=== PATIENT | female | born 1995 | race Two or more races ===

== ENCOUNTER 2024-09-11 13:52 | Outpatient (AMB) | payer MEDICAID, SELFPAY ==
[2024-09-11 14:11] VITALS: BP 121/76; PULSE 84; RESP 17; TEMP 36.5; O2SAT 98; BMI 36.5
--- NOTE | 2024-09-11 14:11 | AMB.OBINITIA ---
Vital Signs 09/11/24 14:11 Height 1.55 m Height Method Measured Weight 87.713 kg Weight Measurement Method Standing Scale BMI 36.5 BP 121/76 Blood Pressure Source Automatic Cuff Blood Pressure Location Right Upper Arm Position Sitting Respiration 17 Pulse 84 Pulse Source Monitor Temp 97.7 F Temp Source Temporal Artery Scan Pulse Oximetry (%) 98 Oxygen Delivery Method Room Air Allergies/Home Meds Allergies & Medications Allergies No Known Allergies Allergy (Verified 09/11/24 14:12) Medication Reconciliation mv-mn no.97-folic 180 mcg-dha 25 mg-herb no.293 25 mg chewable tablet (Alive Daily Support ) tab PO 09/11/24 [History Confirmed 09/11/24] Intake Visit Data Collection New Patient or Established: New Patient (never been to [facility] [place]) Reason for Visit:: OBI Seen by Clinical Staff ONLY (RN/MA): No Body Service Team Member Required: Yes Do You Feel Safe at Home: Yes Authorities Contacted: N/A PCP or OBGYN visit in last 3 months: No Hx Now: Yes Are you currently on any form of Control: No Pain Present Currently: No Pain Scale Used: Evans-Au/Numerical Pain scale:: 0 Smoking Status Smoking Status: Never smoker Questionnaires Covid-19 Vaccine Questionnaire Has patient been vacinated for Covid-19 Have you been vacinated for Covid-19: Yes PHQ-9 PHQ-2 Over the last 2 weeks, how often have you been bothered by any of the following problems? 1. Little interest or pleasure in doing things: not at all 2. Feeling down, depressed, or hopeless: not at all Total score: 0 PHQ-9 3. Trouble falling or staying asleep, or sleeping too much: Not at all 4. Feeling tired or having little energy: Not at all 5. Poor appetite or overeating: Not at all 6. Feeling bad about yourself - or that you are a failure or have let yourself or your family down: Not at all 7. Trouble concentrating on things, such as reading the newspaper or watching television: Not at all 8. Moving or speaking so slowly that other people could have noticed? - Or the opposite - being so fidgety or restless that you have been moving around a lot more than usual: not at all 9. Thoughts that you would be better off or of hurting yourself in some way: Not at all Total score: 0 If you checked off any problems, how difficult have these problems made it for you to do your work, take care of things at home, or get along with other people?: not difficult at all Source: Developed by Drs. Delmer Cameron, Jagruti Mock, Favian Oh and colleagues, with an educational abbi from [facility]. Depression screen completed yes Social History Living Situation History Marital Status: Lives With: Spouse Housing: House Tobacco History Smoking Status: Never smoker Alcohol History Alcohol Intake: Never Domestic Abuse History Do You Feel Safe at Home: Yes History of Present Illness HPI Narrative Lorna Coleman is a 28-year-old female presenting for transfer of care from [facility] at 36 weeks and 3 days gestation. She has a history of two previous C-sections and one spontaneous . The current is significant for maternal obesity and late entry to care. The patient's last menstrual period was on December 31, 2023, with an estimated due date of October 06, 2024. She has been scheduled for a on October 01, 2024, at 7:30 AM. The patient reports no contractions and confirms that the baby is moving. However, due to a vertical incision from previous C-sections, she has been referred for a special ultrasound in [place], as she is at higher risk for placenta problems. During the current visit, it was noted that the baby's heart rate is 190, prompting a decision to send the patient to the hospital for monitoring. No other specific complaints or symptoms were reported by the patient during this visit. Obstetric History - GTPAL: G4 T2 L2 - Current : - Gestational age: 36 weeks and 3 days - Estimated due date: October 06, 2024 - is significant for maternal obesity and late entry to care - history: - 2 previous C-sections - 1 spontaneous (S-AB) Medical History - Maternal obesity Surgical History - Two previous sections - Spontaneous (S-AB) Immunizations - Rubella: Patient is non-immune Review of Systems General: Negative for contractions. Neurological: Positive for movement. OB Initial Visit OB Flowsheet OB Flowsheet Initial Weight: Not Recorded Date <del>?</del> EGA Weight BP Alb Glu CTX Pres Fundal ht FHR Mov Dilation Station Effacement Hx Notes Visit Note 09/11/24 <del>?</del> 36w 3d 87.713 kg 121/76 occasional cephalic 37 190 active Transfer of care from [facility]. Hx 2 C/S with vertical incision, 1 SAB. Maternal obesity, late care. No CTX, good FM. FHR 190 (tachycardia). Labs: GTT 125, NIPT negative (male), rubella non-immune. C/S scheduled 10/01 at 7:30am, urgent [place] US for placenta eval (vertical incision), send to hospital now for monitoring, rubella vaccine. Menstrual History Menstrual reliability: definite Flow: normal Menstrual regularity: regular Monthly: Yes Age at menarche: 14 On control pills at conception: No Date of positive home test: 01/27/24 OB History : 4 Para: 2 Hx # Pregnancies: 0 Hx Total # of Abortions (Spontaneous & Elective): 1 # of Living Children: 2 Delivery History 1st : Child's name: SORAIDA DOMINGO date: 11/10/16 sex: male Gestational age at delivery (weeks): 40 Delivery type: weight (lbs): 2721.554 g History of depression before or after : No 2nd : Child's name: MILDRED DOMINGO date: 06/17/22 sex: male Gestational age at delivery (weeks): 39 Delivery type: weight (lbs): 2721.554 g History of depression before or after : No Infection History & Risk Evaluation History of STDs: none HIV risk evaluation: low risk Hepatitis B risk evaluation: low risk Patient or partner has history of Genital Herpes: No Genetic Screening & History Genetic Screening/Teratology Counseling - Includes patient, baby's father, or anyone in either family with: 1. Patient's age 35 years or older as of estimated date of delivery: No 2. Thalassemia (Vietnamese, French, Mediterranean, or Background); MCV less than 80: No 3. Neural Tube Defect (Meningomyelocele, Spina Bifida, or Anencephaly): No 4. Congenital Heart Defect: No 5. Down Syndrome: No 6. Kendall-Sachs (Ashkenazi Shinto, [facility], [employer] [place]): No 7. Francisco Javier Disease (Ashkenazi Shinto): No 8. Familial Dysautonomia (Ashkenazi Shinto): No 9. Sickle Cell Disease or Trait (): No 10. Hemophilia or other blood disorders: No 11. Muscular Dystrophy: No 12. Cystic Fibrosis: No 13. Ardara's Chorea: No 14. Mental Retardation/Autism: No 15. Other inherited genetic or chromosomal disorder: No 16. Maternal Metabolic Disorder (EG,TYPE 1 Diabetes, PKU): No 17. Patient or baby's father had a child with defects not listed above: No 19. Medications (including supplements, vitamins, herbs or otc drugs)/illicit/recreational drugs/alcohol since last menstrual period: No 20. Any other: No Infection History 1. Live with someone with TB or exposed to TB: No 2. Rash or viral illness since last menstrual period: No 3. Hepatitis B,C: No Other (see comments) Source: [employer] Exam General General Appearance: alert, in no apparent distress and healthy appearing Head Head exam: atraumatic Neck Neck exam: Present normal inspection and trachea midline Chest Chest inspection: Present normal inspection and symmetric chest wall rise External exam: Present normal external exam; Absent tenderness Neuro Neurological exam: Present oriented X3 Psych Psychiatric exam: Present normal affect and normal mood Office Procedures OB Clinic LOC & Office Proc's Nursing/Assessment Patient Status: Initial/New Patient OB Clinic Nursing Assessment: Medication Reconciliation, Update PMH in EMR and Vital Signs OB Clinic Coordination of Care: Complex Care and Chronic Disease 1-5, Education Complex Pt/Fam, Consent,records obtained, informed consent, Lab and Imaging orders and Staff clarify orders Special Needs: Heart tones New Patient Charge New Patient Point Assignment: [id number] New Patient Point Charge: PSYCHIATRIC LPN Level 4 ([id number]) Assessment & Plan Diagnosis / Problem List (1) Maternal care for low transverse scar from previous delivery: Status: Acute (2) Supervision of high risk , unspecified, third trimester: Status: Acute Plan Lorna Coleman, 28-year-old female, at 36 weeks 3 days gestation, presenting for transfer of care with history of 2 previous C-sections and one spontaneous . at 36 weeks 3 days gestation Assessment: Patient is a 28-year-old at 36 weeks 3 days gestation based on LMP of 12-31-2023 and EDC of 10-06-2024. is complicated by maternal obesity and late entry to care. Previous obstetric history significant for 2 C-sections and one spontaneous . One-hour glucose tolerance test result of 125 on 06-26-2024. NiPT test negative for trisomies, indicating male fetus. Ultrasound on 06-05-2024 showed average gestational age of 23 weeks 5 days with MOSES of 09-27-2024. Finalized due date is 10-06-2024. Patient has vertical incision from previous C-sections, increasing risk for placental problems. Plan: - scheduled for October 01, 2024, at 7:30 AM - Urgent referral for special ultrasound in [place] due to vertical incision - One-week follow-up appointment to be scheduled - Send patient to hospital for monitoring due to tachycardia (heart rate 190) tachycardia Assessment: heart rate noted to be 190, indicating tachycardia. This requires immediate evaluation and monitoring. Plan: - Send patient to hospital for immediate monitoring Rubella non-immunity Assessment: Patient's lab results indicate Rubella non-immunity, which may pose a risk for potential Rubella infection during . Plan: - Educate patient on importance of avoiding exposure to Rubella - Plan for post- Rubella vaccination
== END 2024-09-11 15:10 | disposition home or self-care (01) ==
LOC: HODSOBC 13:52
PROVIDERS: Supervising Provider Obstetrics & Gynecology; Visit Provider Obstetrics & Gynecology
DX: O09.33 Supervision of pregnancy with insufficient antenatal care, third trimester (principal); O09.293 Supervision of pregnancy with other poor reproductive or obstetric history, third trimester; O34.211 Maternal care for low transverse scar from previous cesarean delivery; O09.893 Supervision of other high risk pregnancies, third trimester; O99.213 Obesity complicating pregnancy, third trimester; O36.8330 Maternal care for abnormalities of the fetal heart rate or rhythm, third trimester, not applicable or unspecified; Z3A.36 36 weeks gestation of pregnancy
CPT/HCPCS: 99204; G0463

== ENCOUNTER 2024-09-11 15:17 | Outpatient (CLI) | payer MEDICAID, SELFPAY ==
[2024-09-11 15:23] VITALS: BP 110/57; PULSE 76; PULSE 81; O2SAT 99
[2024-09-11 15:28] VITALS: PULSE 98; O2SAT 98
--- NOTE | 2024-09-11 15:32 | XR_ITS ---
Examination: Biophysical profile, ultrasound Date and time of exam: September 11, 2024 at 1545 hours INDICATIONS: tachycardia Examination in the doctor's office today TECHNIQUE: Multiple transabdominal sonographic images of the pelvis abdomen obtained. Attention is directed to the breathing movement, gross body movement, amniotic fluid volume and tone. Findings: Amniotic fluid index 12.5 cm Cardiac motion 148 BPM Total biophysical profile is 8 of 8. breathing movement is 2. Gross body movement is 2. tone is 2. Qualitative amniotic fluid volume is 2 Impression: Biophysical profile is 8 of 8.
[2024-09-11 15:33] VITALS: PULSE 80; O2SAT 96
[2024-09-11 15:38] VITALS: PULSE 102; O2SAT 97
[2024-09-11 15:49] VITALS: BP 110/57; PULSE 81; RESP 18; RESP 99; TEMP 36.7; BMI 35.4
== END 2024-09-11 16:30 | disposition home or self-care (01) ==
LOC: S4S1 15:18 → S4SX 15:18
PROVIDERS: Referring Provider Obstetrics & Gynecology; Visit Provider Obstetrics & Gynecology
DX: Z34.83 Encounter for supervision of other normal pregnancy, third trimester (principal); Z36.9 Encounter for antenatal screening, unspecified; Z3A.36 36 weeks gestation of pregnancy
CPT/HCPCS: 59025; 76819

== ENCOUNTER 2024-09-18 14:26 | Outpatient (AMB) | payer MEDICAID, SELFPAY ==
[2024-09-18 14:36] VITALS: BP 122/76; PULSE 81; RESP 15; TEMP 36.5; O2SAT 98; BMI 36.5
--- NOTE | 2024-09-18 14:36 | OBCLNT_ITS ---
Vital Signs 09/18/24 14:36 Height 1.57 m Height Method Stated Weight 89.981 kg Weight Measurement Method Standing Scale BMI 36.5 BP 122/76 Blood Pressure Source Automatic Cuff Blood Pressure Location Left Upper Arm Position Sitting Respiration 15 Pulse 81 Pulse Source Monitor Temp 97.7 F Temp Source Oral Pulse Oximetry (%) 98 Oxygen Delivery Method Room Air Allergies/Home Meds Allergies & Medications Allergies No Known Allergies Allergy (Verified 09/11/24 14:12) Medication Reconciliation mv-mn no.97-folic 180 mcg-dha 25 mg-herb no.293 25 mg chewable tablet (Alive Daily Support ) tab PO 09/11/24 [History Confirmed 09/18/24] Intake Visit Data Collection New Patient or Established: Established Patient (seen at [facility] within 3 years) Reason for Visit:: CARE Seen by Clinical Staff ONLY (RN/MA): No Metal Roofing Mechanic Required: Yes Metal Roofing Mechanic's name/title: PAVEL MAYBERRY Do You Feel Safe at Home: Yes Authorities Contacted: N/A PCP or OBGYN visit in last 3 months: Yes Hx Now: Yes Are you currently on any form of Control: No Pain Present Currently: No Pain Scale Used: Evans-Au/Numerical Pain scale:: 0 Smoking Status Smoking Status: Never smoker Questionnaires Covid-19 Vaccine Questionnaire Has patient been vacinated for Covid-19 Have you been vacinated for Covid-19: Yes PHQ-9 PHQ-2 Over the last 2 weeks, how often have you been bothered by any of the following problems? 1. Little interest or pleasure in doing things: not at all 2. Feeling down, depressed, or hopeless: not at all Total score: 0 PHQ-9 3. Trouble falling or staying asleep, or sleeping too much: Not at all 4. Feeling tired or having little energy: Not at all 5. Poor appetite or overeating: Not at all 6. Feeling bad about yourself - or that you are a failure or have let yourself or your family down: Not at all 7. Trouble concentrating on things, such as reading the newspaper or watching television: Not at all 8. Moving or speaking so slowly that other people could have noticed? - Or the opposite - being so fidgety or restless that you have been moving around a lot more than usual: not at all 9. Thoughts that you would be better off or of hurting yourself in some way: Not at all Total score: 0 Source: Developed by Drs. Delmer Cameron, Jagruti Mock, Favian Oh and colleagues, with an educational abbi from [employer]. Depression screen completed yes Social History Living Situation History Lives With: Spouse Housing: House Tobacco History Smoking Status: Never smoker Alcohol History Alcohol Intake: Never Domestic Abuse History Do You Feel Safe at Home: Yes History of Present Illness HPI Narrative Lorna Early, , presents for routine visit at 37 weeks and 3 days gestation. Patient has a scheduled delivery (2 previous C-sections in [place]). No contractions, LOF, VB and reports good FM. Denies HERNÁNDEZ, VC, and epigastric pain. - Lorna Early is a 28-year-old 4 para 2 female at 37 weeks and 3 days gestation presenting for routine care. - Patient is scheduled for section on October 01, 2024 at 7:30. - Recent healthcare interaction: - Sent to labor and delivery due to tachycardia, which resolved during evaluation. - Current status: - Reports feeling fine - Notes baby is active - No current concerns reported Care OB Visit Log OB Flowsheet Initial Weight: Not Recorded Date -?-?-?-?-?-?-?-?-?-?-?-?- EGA Weight BP Alb Glu CTX Pres Fundal ht FHR Mov Dilation Station Effacement Hx Notes Visit Note 09/11/24 -?-?-?-?-?-?-?-?-?-?-?-?- 36w 3d 87.713 kg 121/76 occasional cephalic 37 190 active Transfer of care from [facility]. Hx 2 C/S with vertical incision, 1 SAB. Maternal obesity, late care. No CTX, good FM. FHR 190 (tachycardia). Labs: GTT 125, NIPT negative (male), rubella non-immune. C/S scheduled 10/01 at 7:30am, urgent [place] US for placenta eval (vertical incision), send to hospital now for monitoring, rubella vaccine. 09/18/24 -?-?-?-?-?-?-?-?-?-?-?-?- 37w 3d 89.981 kg 122/76 occasional cephalic 38 145 active Pt reports doing well, no CTX/LOF/VB, good FM. Hx of recent tachycardia resolved on eval. scheduled 10/01/24 at 7:30 AM. FHR reassuring. Weekly f/u, monitor FM, go to L&D if FM <3h and no response to juice. MOSES Calculator Estimated Delivery Date Method Current WG Current Estimate 10/06/24 LMP (Certain) 37w 3d Other Estimates 09/27/24 Ultrasound #1 38w 5d Specific Issue/Plans Vital Signs - Heart Rate: 190 bpm Laboratory, Imaging, and Diagnostic Test Results - Date: 06/26/2024 - One-hour glucose tolerance: 125 - NiPT: Negative for trisomies - ARTBiR: Non-reactive - HIV: Negative - Antibody screen: Negative - Hepatitis B: Negative - Urine culture: Negative - Blood group: A-positive - Rubella: Non-immune - Ultrasound (06/05/2024): - Average gestational age: 23 weeks and 5 days - Estimated due date: 09/27/2024 Exam General General Appearance: alert, in no apparent distress and healthy appearing Head Head exam: atraumatic Neck Neck exam: Present normal inspection and trachea midline Chest Chest inspection: Present normal inspection and symmetric chest wall rise External exam: Present normal external exam; Absent tenderness Neuro Neurological exam: Present oriented X3 Psych Psychiatric exam: Present normal affect and normal mood Office Procedures OB Clinic LOC & Office Proc's Nursing/Assessment Patient Status: Established Patient OB Clinic Nursing Assessment: Medication Reconciliation, Update PMH in EMR and Vital Signs OB Clinic Coordination of Care: Complex Care and Chronic Disease 1-5, Consent,records obtained, informed consent, Education Simp Pt/Fam, Lab and Imaging orders, Results/Orders obtained and Staff clarify orders Special Needs: Heart tones Established Patient Charge Established Patient Point Assignment: 135 Established Patient Point Charge: EP Level 4 (120-155) Assessment & Plan Diagnosis / Problem List (1) Supervision of high risk , unspecified, third trimester: Status: Acute (2) Maternal care for low transverse scar from previous delivery: Status: Acute Plan Problem List - , 37 weeks and 3 days gestation - History of tachycardia Assessment 37-week 3-day presenting for routine care. Patient is scheduled for section on October 01, 2024. History of recent tachycardia that resolved spontaneously during previous hospital evaluation. Currently, movement is reported as normal. Patient appears to be progressing normally in her with no acute concerns noted. Plan - scheduled for October 01, 2024 at 7:30 - Follow-up appointment in one week - If no movement for more than 3 hours, patient instructed to drink a glass of juice - If still no movement after juice, patient to go to the hospital 1. Progress Reviewed gestational age, growth, and heart rate. Planned frequent visits (every 2 weeks until 36 weeks, then weekly). 2. Instructed patient to monitor movements and report decreases immediately. Advised to drink a glass of juice if no movement felt for 3 hours, and to come to the hospital if that doesn't work. 3. Testing Counseled on routine third-trimester labs per guidelines. Discussed potential need for ultrasound or monitoring based on risk factors. 4. Preeclampsia Precaution Educated on preeclampsia signs: severe headache, vision changes, right upper quadrant pain, sudden swelling. Advised urgent reporting of symptoms and discussed blood pressure monitoring if high risk. 5. Labor Precautions Reviewed labor signs: regular contractions, pelvic pressure, back pain, bleeding, or fluid leakage. Instructed to seek immediate care for these symptoms. 6. Lifestyle and Delivery Preparation Reinforced vitamins, nutrition, and safe activity. Discussed plan, pain management, and . Advised on labor preparation (e.g., hospital bag) and expectations. 7. Psychosocial Support Assessed emotional well-being and offered resources for mental health or parent ing support.
== END 2024-09-18 14:48 | disposition home or self-care (01) ==
LOC: HODSOBC 14:26
PROVIDERS: PCP Obstetrics & Gynecology; Referring Provider Obstetrics & Gynecology; Supervising Provider Obstetrics & Gynecology; Visit Provider Obstetrics & Gynecology
DX: O09.293 Supervision of pregnancy with other poor reproductive or obstetric history, third trimester (principal); O34.211 Maternal care for low transverse scar from previous cesarean delivery; Z3A.37 37 weeks gestation of pregnancy
CPT/HCPCS: 99214; G0463

== ENCOUNTER 2024-09-25 11:02 | Outpatient (AMB) | payer MEDICAID, SELFPAY ==
[2024-09-25 11:09] VITALS: BP 118/80; PULSE 88; RESP 16; TEMP 36.4; O2SAT 98; BMI 36.7
--- NOTE | 2024-09-25 11:09 | AMB.OBVISIT ---
Vital Signs 09/25/24 11:09 Height 1.57 m Height Method Stated Weight 90.492 kg Weight Measurement Method Standing Scale BMI 36.7 BP 118/80 Blood Pressure Source Automatic Cuff Blood Pressure Location Left Upper Arm Position Sitting Respiration 16 Pulse 88 Pulse Source Monitor Temp 97.6 F Temp Source Oral Pulse Oximetry (%) 98 Oxygen Delivery Method Room Air Allergies/Home Meds Allergies & Medications Allergies No Known Allergies Allergy (Verified 09/25/24 11:10) Medication Reconciliation mv-mn no.97-folic 180 mcg-dha 25 mg-herb no.293 25 mg chewable tablet (Alive Daily Support ) tab PO 09/11/24 [History Confirmed 09/25/24] Intake Visit Data Collection New Patient or Established: Established Patient (seen at [facility] within 3 years) Reason for Visit:: CARE Seen by Clinical Staff ONLY (RN/MA): No [place] Management Specialist Required: No Do You Feel Safe at Home: Yes Authorities Contacted: N/A PCP or OBGYN visit in last 3 months: Yes Hx Now: Yes Are you currently on any form of Control: No Pain Present Currently: No Pain Scale Used: Evans-Au/Numerical Pain scale:: 0 Smoking Status Smoking Status: Never smoker Questionnaires Covid-19 Vaccine Questionnaire Has patient been vacinated for Covid-19 Have you been vacinated for Covid-19: Yes PHQ-9 PHQ-2 Over the last 2 weeks, how often have you been bothered by any of the following problems? 1. Little interest or pleasure in doing things: not at all 2. Feeling down, depressed, or hopeless: not at all Total score: 0 PHQ-9 3. Trouble falling or staying asleep, or sleeping too much: Not at all 4. Feeling tired or having little energy: Not at all 5. Poor appetite or overeating: Not at all 6. Feeling bad about yourself - or that you are a failure or have let yourself or your family down: Not at all 7. Trouble concentrating on things, such as reading the newspaper or watching television: Not at all 8. Moving or speaking so slowly that other people could have noticed? - Or the opposite - being so fidgety or restless that you have been moving around a lot more than usual: not at all 9. Thoughts that you would be better off or of hurting yourself in some way: Not at all Total score: 0 Source: Developed by Drs. Delmer Cameron, Jagruti Mock, Favian Oh and colleagues, with an educational abbi from [employer]. Depression screen completed yes Social History Living Situation History Lives With: Spouse Housing: House Tobacco History Smoking Status: Never smoker Alcohol History Alcohol Intake: Never Domestic Abuse History Do You Feel Safe at Home: Yes History of Present Illness HPI Narrative Yasmine Graham[P], presents for routine visit at 38 weeks and 3 days gestation. No contractions, LOF, VB and reports good FM. Denies HERNÁNDEZ, VC, and epigastric pain. - Lorna Early is a female patient presenting for routine care at 38 weeks and 3 days gestation. - She is scheduled for a on 10/01/2024 at 7:30 AM. - Patient instructed to register at 5:30 AM. - No food or water from 10 PM the night before. - heart rate noted to be 139 beats per minute. - Patient denies any contractions or other problems. Care OB Visit Log OB Flowsheet Initial Weight: Not Recorded Date <del>?</del> EGA Weight BP Alb Glu CTX Pres Fundal ht FHR Mov Dilation Station Effacement Hx Notes Visit Note 09/11/24 <del>?</del> 36w 3d 87.713 kg 121/76 occasional cephalic 37 190 active Transfer of care from [facility]. Hx 2 C/S with vertical incision, 1 SAB. Maternal obesity, late care. No CTX, good FM. FHR 190 (tachycardia). Labs: GTT 125, NIPT negative (male), rubella non-immune. C/S scheduled 10/01 at 7:30am, urgent Bell US for placenta eval (vertical incision), send to hospital now for monitoring, rubella vaccine. 09/18/24 <del>?</del> 37w 3d 89.981 kg 122/76 occasional cephalic 38 145 active Pt reports doing well, no CTX/LOF/VB, good FM. Hx of recent tachycardia resolved on eval. scheduled 10/01/24 at 7:30 AM. FHR reassuring. Weekly f/u, monitor FM, go to L&D if FM <3h and no response to juice. 09/25/24 <del>?</del> 38w 3d 90.492 kg 118/80 occasional cephalic 39 139 active 38w3d G[P], no CTX/LOF/VB, FM good. scheduled 10/01/24 at 7:30 AM, register at 5:30 AM, NPO after 10 PM prior. FHR 139. Plan: routine precautions reviewed, no further appointments, next encounter will be at hospital for delivery. MOSES Calculator Estimated Delivery Date Method Current WG Current Estimate 10/06/24 LMP (Certain) 38w 3d Other Estimates 09/27/24 Ultrasound #1 39w 5d Specific Issue/Plans Vital Signs - Heart Rate: 190 bpm Laboratory, Imaging, and Diagnostic Test Results - Date: 06/26/2024 - One-hour glucose tolerance: 125 - NiPT: Negative for trisomies - ARTBiR: Non-reactive - HIV: Negative - Antibody screen: Negative - Hepatitis B: Negative - Urine culture: Negative - Blood group: A-positive - Rubella: Non-immune - Ultrasound (06/05/2024): - Average gestational age: 23 weeks and 5 days - Estimated due date: 09/27/2024 Exam General General Appearance: alert, in no apparent distress and healthy appearing Head Head exam: atraumatic Neck Neck exam: Present normal inspection and trachea midline Chest Chest inspection: Present normal inspection and symmetric chest wall rise External exam: Present normal external exam; Absent tenderness Neuro Neurological exam: Present oriented X3 Psych Psychiatric exam: Present normal affect and normal mood Office Procedures OB Clinic LOC & Office Proc's Nursing/Assessment Patient Status: Established Patient OB Clinic Nursing Assessment: Medication Reconciliation, Update PMH in EMR and Vital Signs OB Clinic Coordination of Care: Complex Care and Chronic Disease 1-5, Consent,records obtained, informed consent, Education Simp Pt/Fam, Lab and Imaging orders, Results/Orders obtained and Staff clarify orders Special Needs: Heart tones Established Patient Charge Established Patient Point Assignment: 135 Established Patient Point Charge: EP Level 4 (120-155) Assessment & Plan Diagnosis / Problem List (1) Supervision of high risk , unspecified, third trimester: Status: Acute (2) Maternal care for low transverse scar from previous delivery: Status: Acute Plan Problem List - , 38 weeks and 3 days gestation Assessment Patient is at 38 weeks and 3 days gestation, presenting for routine care. heart rate is 139 bpm, which is noted as normal. Patient denies any contractions or other problems. A section is scheduled for 10/01/2024 at 7:30 AM. Plan - scheduled for 10/01/2024 at 7:30 AM - Patient to register at 5:30 AM on the day of surgery - NPO (nothing by mouth) from 10 PM the night before surgery - Next encounter will be at the hospital for the scheduled 1. Progress Reviewed gestational age, growth, and heart rate. Planned frequent visits (every 2 weeks until 36 weeks, then weekly). 2. Instructed patient to monitor movements and report decreases immediately. 3. Testing Counseled on routine third-trimester labs per guidelines. Discussed potential need for ultrasound or monitoring based on risk factors. 4. Preeclampsia Precaution Educated on preeclampsia signs: severe headache, vision changes, right upper quadrant pain, sudden swelling. Advised urgent reporting of symptoms and discussed blood pressure monitoring if high risk. 5. Labor Precautions Reviewed labor signs: regular contractions, pelvic pressure, back pain, bleeding, or fluid leakage. Instructed to seek immediate care for these symptoms. 6. Lifestyle and Delivery Preparation Reinforced vitamins, nutrition, and safe activity. Discussed plan, pain management, and . Advised on labor preparation (e.g., hospital bag) and expectations. 7. Psychosocial Support Assessed emotional well-being and offered resources for mental health or parenting support.
== END 2024-09-25 11:20 | disposition home or self-care (01) ==
LOC: HODSOBC 11:02
PROVIDERS: PCP Obstetrics & Gynecology; Referring Provider Obstetrics & Gynecology; Supervising Provider Obstetrics & Gynecology; Visit Provider Obstetrics & Gynecology
DX: O09.293 Supervision of pregnancy with other poor reproductive or obstetric history, third trimester (principal); O34.211 Maternal care for low transverse scar from previous cesarean delivery; Z3A.38 38 weeks gestation of pregnancy
CPT/HCPCS: 99214; G0463

== ENCOUNTER 2024-10-01 05:39 | Inpatient (IN) | payer MEDICAID, SELFPAY ==
[2024-10-01] VITALS (19 sets, daily range): BP systolic 84–144; BP diastolic 1–83; PULSE 48–78; RESP 12–21; TEMP 36.5–37; O2SAT 97–100; BMI 35.4
--- NOTE | 2024-10-01 06:24 | ESHP_ITS ---
Documentation for date of: 10/01/24 OB Labor/Induct. HPI History of Present Illness Chief complaint: Repeat : 4 Term pregnancies: 2 pregnancies: 0 Living children: 2 History of Abortions: Spontaneous and Elective: 0 History of sections: Yes (X2) History of : No Date of last menstrual period: 12/31/23 MOSES: 10/06/24 Gestational age based on last menstrual period: 39 History of present illness: Patient is a 28-year-old at 39 weeks and 2 days gestation presenting for a scheduled repeat low transverse caesarean section. Her estimated due date is October 06, 2024. She initially started her care at [facility] and transferred to the current practice in the third trimester. Her has been uncomplicated since the transfer. She has a history of two previous caesarean sections and one spontaneous . Patient's course has been largely unremarkable. Her one-hour glucose tolerance test result was 125. The remaining labs, which were reviewed from her primary bottle packing machine cleaner's office, were reportedly within normal limits. She is af G4 T2 L2. Her current is at 39 weeks and 2 days gestation, with an estimated due date of October 06, 2024. She is presenting for a Scheduled Repeat Low Transverse Caesarean Section. Patient's history includes 2 previous C-sections and one spontaneous (SAB). Her surgical history consists of two previous Caesarean sections and one spontaneous (SAB). Labs Labs: Negative: RPR, Hepatitis B, Rubella Titre and HIV and Unknown: Chlamydia, Gonorrhea, Herpes Type 1, Herpes Type 2, Group Beta Strep and Covid- 19 Review of Systems Review of Systems Systems Reviewed: All systems reviewed, normal except as documented Past Medical History Surgical History SURGICAL: Positive Section (X2) Meds Home Medications and Allergies Home Medications ?Medication ?Instructions ?Recorded ?Confirmed ?Type mv-mn no.97-folic 180 mcg-dha 25 tab PO 09/11/2409/25 History mg-herb no.293 25 mg chewable tablet (Alive Daily Support ) Allergies Allergy/AdvReac Type Severity Reaction Status Date / Time No Known Allergies Allergy Verified 10/01/24 06:10 OB Exam Physical Exam Vital signs: Temp Pulse Resp BP Pulse Ox O2 Del Method 98.0 F 74 16 122/83 98 Room Air 10/01/24 06:03 10/01/24 06:03 10/01/24 06:03 10/01/24 06:03 10/01/24 06:03 10/01/24 06:03 Constitutional Constitutional: no acute distress Routine HEENT Exam Head: Present normocephalic and atraumatic Eye: Present EOMI and PERRL ENT: Present mucous membranes moist Routine Neck Exam Neck: Present supple and trachea midline Routine Cardiovascular Exam Cardiovascular: Present RRR Routine Abdominal Exam Abdominal: Present soft and normoactive bowel sounds Detailed Labor and Delivery Exam Dilation (cm): 0 Effacement (%): 50 Cervix position: mid Baseline heart rate: 145 monitor accelerations: 15x15 monitor decelerations: None retirement variability: Average (6-10) Routine Extremities Exam Extremities: Present full ROM Routine Skin Exam Skin: Present intact, dry and warm Routine Neurological Exam Neurological: Present alert, oriented X3 and CN II-XII intact Routine Psychiatric Exam Psychiatric: Present normal affect and normal thought process OB Results Labs 10/01/24 06:00 OB Assessment & Plan Assessment and Plan (1) Supervision of high risk , unspecified, third trimester: Status: Acute Assessment and plan: Scheduled Repeat Low Transverse Section Plan: - Admit to inpatient status for repeat low transverse . - Establish IV access with Lactated Ringer's at 125 cc/hour. - Order preoperative labs: CBC, type and screen, RPR. - Administer cefazolin 2 grams IV within one hour of surgery start. - Apply sequential compression devices (SCDs) for DVT prophylaxis. - Obtain informed consent for repeat low transverse . - Scheduled for surgery for 7:30 AM. Patient Information: - 28-year-old at 39 weeks and 2 days gestation. - History of 2 previous C-sections and one spontaneous . - Estimated due date: October 06, 2024. - Uncomplicated . - One-hour glucose tolerance test result: 125. - labs from primary bottle packing machine cleaner's office reviewed. (2) Maternal care for low transverse scar from previous delivery: Status: Acute
[2024-10-01 06:39] LABS: Basophils # (Auto) 0.0 Thou/mm3 (0.0-0.2); Basophils % (Auto) 1 % (0-2.5); Eosinophils # (Auto) 0.1 Thou/mm3 (0.0-0.5); Eosinophils % (Auto) 1 % (0-10); Hematocrit 37.2 % (36.0-46.0); Hemoglobin 12.9 g/dL (12.0-16.0); Immature Granulocytes Auto 0.11 Thou/mm3 (0.00-0.00); Lymphocytes # (Auto) 2.3 Thou/mm3 (1.0-4.8); Lymphocytes % (Auto) 30 % (10-50); Mean Corpuscular HGB Conc 34.7 g/dl (31.0-37.0); Mean Corpuscular Hemoglobin 28.8 pg (25.0-35.0); Mean Corpuscular Volume 83 fL (80-100); Monocytes # (Auto) 0.5 Thou/mm3 (0.0-0.8); Monocytes % (Auto) 7 % (0-12); Neutrophils # (Auto) 4.6 Thou/mm3 (1.8-7.7); Neutrophils % (Auto) 60 % (37-80); Nucleated Red Blood Cell # 0.00 Thou/mm3 (0.00-0.00); Nucleated Red Blood Cell % 0 /100 WBC (0); Platelet Count 163 Thou/mm3 (140-440); RDW Standard Deviation 39.2 fL (36.4-46.3); Red Blood Count 4.48 Miln/mm3 (4.00-5.20); White Blood Count 7.7 Thou/mm3 (3.6-11.0)
[2024-10-01] MEDS: RINGERS LACTATED 1000 ML 1,000 ML 999 ML IV (06:59)
[2024-10-01 07:04] LABS: Syphilis Nonreactive (Nonreactive)
[2024-10-01] MEDS: CITRIC ACID/SODIUM CITR 15 ML UDC (BICITRA) 30 ML PO (08:04)
[2024-10-01] MEDS: ceFAZolin/D5W 2 GM IV 2 GM/100 ML BAG IV (08:05)
[2024-10-01] MEDS: FAMOTIDINE INJ 10 MG/ML VIAL 2 ML 20 MG IV (08:05)
--- NOTE | 2024-10-01 08:48 | PD.GYNPROC ---
Operative Note - GEOPHYSICAL PROSPECTING PERMIT AGENT Procedure Date of procedure: 10/01/24 Procedure Performed: Repeat low-transverse section Indication: 28-year-old 4 para 2 at 39 weeks and 2 days with previous Anesthesia type: Spinal Procedure description: Informed consent was obtained. The patient was brought to the operating room and identified with two patient identifiers. She was placed in the supine position, and spinal anesthesia was administered. After confirming adequate anesthesia, the abdomen and perineum were prepped and draped in the usual sterile fashion. A Rivera catheter was inserted for continuous bladder drainage. A vertical midline skin incision was made using a scalpel and carried through subcutaneous tissue to the rectus fascia. The previous skin scar was identified and excised in its entirety. The fascia was incised vertically and dissected off the rectus muscles both superiorly and inferiorly. The rectus bellies were in the midline, and the peritoneum was entered bluntly with the surgeon?s finger. The peritoneal opening was extended to allow adequate exposure. An Bijan O-ring retractor was placed for optimal visualization. The lower uterine segment was palpated, and the bladder flap was reflected inferiorly. A low transverse uterine incision (Sean Ferreira) was made with a scalpel and extended bluntly. The amniotic membranes were ruptured, and clear fluid was released. The fetus was in vertex presentation. A Mityvac vacuum device was applied to the head. Vacuum-assisted delivery was accomplished without any pop-offs. A single loop of nuchal cord was noted and reduced. The shoulders and body were delivered smoothly with gentle fundal pressure. The umbilical cord was doubly clamped and cut, and the infant was handed to the awaiting team. Cord gases were obtained. The placenta was delivered with gentle traction on the cord. The uterine cavity was cleared of membranes and clots. The hysterotomy angles were secured with Allis clamps. The uterine incision was closed in two layers using #1 Monocryl: the first layer was a running locked suture to approximate the myometrium, and the second layer imbricated the serosa and myometrium. Hemostasis was confirmed. The Bijan retractor was removed. Peritoneal edges and rectus muscles were reapproximated. Rectus fascia was closed with running 0 Vicryl. The subcutaneous tissue was irrigated with warm saline, and bleeding points were cauterized using Bovie electrocautery. Subcutaneous tissue was approximated with 3-0 Vicryl. The skin was closed using jef. A sterile dressing was applied. The patient was cleaned, undraped, and transferred to the recovery room in stable and awake condition. She tolerated the procedure well. No complications were encountered. All counts were correct ?2. Estimated blood loss (ml): 600 Complications: none Surgical staff Operation Date: 10/01/24 07:45 Case Staff ETCHER ENAMELING: Tarik Kumari RNnational insurance officer: Deysi Velez Diagnosis Discharge Diagnosis (1) Supervision of high risk , unspecified, third trimester: Status: Acute (2) Maternal care for low transverse scar from previous delivery: Status: Acute Problem List Completed Was Problem List Reviewed/Reconciled?: Yes
[2024-10-01 09:49] LABS: Amphetamine/Metham Scrn,Ur OB Negative (Negative); Benzoylecgonine Screen, Ur OB Negative (Negative); Opiate Screen,Urine OB Negative (Negative); THC Screen,Urine OB Negative (Negative)
[2024-10-01] MEDS: OXYTOCIN in NS 20 units 20 UNIT/1,000 ML BAG 125 UNIT IV (10:44)
[2024-10-01] MEDS: ONDANSETRON INJ 2 MG/ML INJ 2 ML 4 MG IV (13:05)
[2024-10-01] MEDS: RINGERS LACTATED 1000 ML 1,000 ML 125 ML IV (19:40)
--- NOTE | 2024-10-01 21:42 | PD.LDDELS ---
Data (Tirado) Data Hx Section: Yes (X2) : 4 Term: 2 : 0 Livin Abortions: Spontaneous & Theraputic: 0 Delivery Data (Tirado) Labor Data Induction/Augmentation Agent: None ROM date: 10/01/24 ROM time: 08:30 Amniotic membrane rupture type: Artificial Amniotic fluid description: Clear Delivery Data Onset of labor date: 10/01/24 Onset of labor time: 08:30 Complete dilation date: 10/01/24 Complete dilation time: 08:30 delivery date: 10/01/24 delivery time: 08:30 Placenta delivery date: 10/01/24 Placenta delivery time: 08:31 Stage 1 total time: Labor - Stage 1 Duration 0 minutes Delivered by: ronald Delivery nurse: tamica Neworn nurse: john Motion Picture Set Grip at delivery: Yes (Rosibel) Support person(s) at delivery: FOTawana Other staff at delivery: CHAVA Palmer, OB OR tech TYSON Schwartz Delivery Method Delivery method: Low Transverse Anesthesia Type Anesthesia Type: Spinal Anesthesia type: Spinal Placenta Placenta delivery description: Manual Removal Cord blood sent to lab: Yes cord blood collection: Cord Blood Type Episiotomy Episiotomy description: None Umbilical Cord cord description: 3 Vessels Data (Tirado) Data order: 1 [place]'s gender: Male Identification band number: [id number] weight (gms): 3980 g Weight (pounds): 8 lbs and 12.4 ozs 1 minute: 9 5 minutes: 9
[2024-10-02 03:05] VITALS: BP 109/66; PULSE 62; RESP 16; TEMP 37.1; O2SAT 97
--- NOTE | 2024-10-02 03:51 | PC.NURSE ---
Patient unable to void 6 hrs post catheter removal. Bladder scan showed 871ml, remove 950ml urine output per reyes cath. Dr. Molina notified, ordered to leave catheter 6 hrs.
[2024-10-02 06:23] LABS: Basophils # (Auto) 0.0 Thou/mm3 (0.0-0.2); Basophils % (Auto) 0 % (0-2.5); Eosinophils # (Auto) 0.1 Thou/mm3 (0.0-0.5); Eosinophils % (Auto) 1 % (0-10); Hematocrit 30.8 % (36.0-46.0); Hemoglobin 10.5 g/dL (12.0-16.0); Immature Granulocytes Auto 0.08 Thou/mm3 (0.00-0.00); Lymphocytes # (Auto) 1.5 Thou/mm3 (1.0-4.8); Lymphocytes % (Auto) 15 % (10-50); Mean Corpuscular HGB Conc 34.1 g/dl (31.0-37.0); Mean Corpuscular Hemoglobin 29.0 pg (25.0-35.0); Mean Corpuscular Volume 85 fL (80-100); Monocytes # (Auto) 0.6 Thou/mm3 (0.0-0.8); Monocytes % (Auto) 6 % (0-12); Neutrophils # (Auto) 7.5 Thou/mm3 (1.8-7.7); Neutrophils % (Auto) 77 % (37-80); Nucleated Red Blood Cell # 0.00 Thou/mm3 (0.00-0.00); Nucleated Red Blood Cell % 0 /100 WBC (0); Platelet Count 148 Thou/mm3 (140-440); RDW Standard Deviation 41.7 fL (36.4-46.3); Red Blood Count 3.62 Miln/mm3 (4.00-5.20); White Blood Count 9.8 Thou/mm3 (3.6-11.0)
[2024-10-02 07:08] VITALS: BP 118/70; PULSE 65; RESP 18; TEMP 36.9; O2SAT 97
[2024-10-02] MEDS: Milk Of Magnesia Susp 30 ML UDC PO (07:33)
[2024-10-02] MEDS: SIMETHICONE 80 MG CHEW PO (07:33)
[2024-10-02] MEDS: DOCUSATE SOD 100 MG CAPSULE PO (08:41)
--- NOTE | 2024-10-02 10:22 | PC.SS ---
HEAVY EQUIPMENT OPERATING ENGINEER conducted bedside contact with the patient to address nursing referral indicating patient was late to care. HEAVY EQUIPMENT OPERATING ENGINEER introduced self and role present with patient was Ananth PINA. Patient gave permission for FOB to be present during discussion. HEAVY EQUIPMENT OPERATING ENGINEER reviewed with patient basis of referral, LTC. ?Patient confirmed late to care (20 weeks) due to lack of OB providers at [facility]. Subsequently patient accessed OB services through [facility] OB provider was Doctor Raúl Gentlie. Following initial appointment patient complaint with services. Infant, Bimal; is the patients third child. Other children are ages 7 years and 2 years old. Infant was delivered via . Patient plans on bottle feeding the . Patient is aligned with WIC and SNAP. Patient is not receiving TANF. Patient denies history of alcohol/drug abuse.? Patient denies CWS intervention.? Patient denies episodes of domestic violence.? Patient denies possessing a history of mental health, reports no current possession of depression or anxiety. Patient has access to appropriate supplies and equipment; to include a car seat.? FOB will provide transportation upon discharge.? Patient describes possessing support system consisting of FOB and sister.? HEAVY EQUIPMENT OPERATING ENGINEER provided the patient with community resources to include Parenting Network and Warm Line.? No further intervention required at this time, renal social worker will be available to address any further concerns.? HEAVY EQUIPMENT OPERATING ENGINEER updated bedside nurse.?
--- NOTE | 2024-10-02 10:44 | ESPR_ITS ---
Subjective Subjective Interval history: Patient denies any problem or complaint.. She is voiding and ambulating and tolerating a regular diet. She is passing flatus.. She denies any excessive vaginal bleeding.. She denies any dizziness or lightheadedness. She denies any chest pain palpitation shortness of breath or lower extremity pain. Exam Vital Signs Temp Pulse Resp BP Pulse Ox O2 Del Method 98.5 F 65 18 118/70 97 Room Air 10/02/24 07:08 10/02/24 07:08 10/02/24 07:08 10/02/24 07:08 10/02/24 07:08 10/02/24 07:08 Routine Respiratory Exam Comments: Clear to auscultation bilaterally Routine Cardiovascular Exam Comments: Regular rate and rhythm Routine Abdominal Exam Comments: Dressing dry and intact Routine Extremities Exam Comments: Nontender. Objective Labs 10/02/24 04:56 Labs: Laboratory Results - last 24 hr 10/02/24 04:56 WBC 9.8 RBC 3.62 L Hgb 10.5 L D Hct 30.8 L MCV 85 MCH 29.0 MCHC 34.1 RDW Std Deviation 41.7 Plt Count 148 Neut % (Auto) 77 Lymph % (Auto) 15 [place] % (Auto) 6 Eos % (Auto) 1 Baso % (Auto) 0 Neut # (Auto) 7.5 Lymph # (Auto) 1.5 [place] # (Auto) 0.6 Eos # (Auto) 0.1 Baso # (Auto) 0.0 Immature Gran # (Auto) 0.08 H Absolute Nucleated RBC 0.00 Immature Gran % 1 H Nucleated RBC % 0 Assessment & Plan Problem List (1) Supervision of high risk , unspecified, third trimester: Status: Acute (2) Maternal care for low transverse scar from previous delivery: Status: Acute Assessment and plan: Post op day #1 status post delivery Encourage ambulation support Remove dressing DC IV Possible discharge home tomorrow Time Spent With Patient Time: Total time spent is greater than 50% in coordination of care (as documented) at patient's floor/unit and/or counseling patient:
[2024-10-02 15:05] VITALS: BP 118/72; PULSE 85; RESP 17; TEMP 36.7; O2SAT 97
[2024-10-02 19:35] VITALS: BP 125/80; PULSE 81; RESP 18; TEMP 36.8; O2SAT 97
[2024-10-03 03:43] VITALS: BP 115/70; PULSE 77; RESP 16; TEMP 36.8; O2SAT 98
--- NOTE | 2024-10-03 06:12 | ESPR_ITS ---
Subjective Subjective Interval history: Patient denies any problem or complaint. Exam Vital Signs Temp Pulse Resp BP Pulse Ox O2 Del Method 98.3 F 77 16 115/70 98 Room Air 10/03/24 03:43 10/03/24 03:43 10/03/24 03:43 10/03/24 03:43 10/03/24 03:43 10/03/24 03:43 Routine Respiratory Exam Comments: Clear to auscultation bilateral Routine Cardiovascular Exam Comments: Regular rate and rhythm Routine Abdominal Exam Comments: Incision clear and intact fundus is firm soft nondistended Routine Extremities Exam Comments: Nontender Objective Labs 10/02/24 04:56 Labs: Laboratory Results - last 24 hr 10/02/24 04:56 WBC 9.8 RBC 3.62 L Hgb 10.5 L D Hct 30.8 L MCV 85 MCH 29.0 MCHC 34.1 RDW Std Deviation 41.7 Plt Count 148 Neut % (Auto) 77 Lymph % (Auto) 15 [place] % (Auto) 6 Eos % (Auto) 1 Baso % (Auto) 0 Neut # (Auto) 7.5 Lymph # (Auto) 1.5 [place] # (Auto) 0.6 Eos # (Auto) 0.1 Baso # (Auto) 0.0 Immature Gran # (Auto) 0.08 H Absolute Nucleated RBC 0.00 Immature Gran % 1 H Nucleated RBC % 0 Assessment & Plan Problem List (1) Supervision of high risk , unspecified, third trimester: Status: Acute (2) Maternal care for low transverse scar from previous delivery: Status: Acute Assessment and plan: Postop day #2 status post delivery Discharge home Discharge instructions given Follow-up in the office in 1 week Time Spent With Patient Time: Total time spent is greater than 50% in coordination of care (as documented) at patient's floor/unit and/or counseling patient:
[2024-10-04 18:24] LABS: Chlamydia trachomatis PCR Negative (Not Detect); Neisseria Gonorrhoeae DNA PCR Negative (Not Detect); Trichomonas Negative (Negative)
== END 2024-10-03 08:25 | disposition home or self-care (01) | DRG 540 ==
LOC: S4SX 06:32 → S4NX 08:11
PROVIDERS: Admitting Provider Obstetrics & Gynecology; Visit Provider Specialist
PROC: 10D00Z1 Extraction of Products of Conception, Low, Open Approach (ICD-10-PCS; CPT 59514; principal; 2024-10-01 07:30)
DX: O34.211 Maternal care for low transverse scar from previous cesarean delivery (principal); Z37.0 Single live birth; Z3A.39 39 weeks gestation of pregnancy; O69.81X0 Labor and delivery complicated by cord around neck, without compression, not applicable or unspecified
CPT/HCPCS: 36415; 80307; 85025; 86780; 86850; 86900; 86901; 87491; 87591; 87661; A4314; A4649; J0689; J1885; J2274; J2371; J2405; J2590; J3490; J7120; A9270; J2270

== ENCOUNTER 2024-10-16 11:04 | Outpatient (AMB) | payer MEDICAID, SELFPAY ==
[2024-10-16 11:30] VITALS: BP 118/78; PULSE 82; RESP 17; TEMP 36.4; O2SAT 99; BMI 30.5
--- NOTE | 2024-10-16 11:30 | AMBOBPPN_ITS ---
Vital Signs 10/16/24 11:30 Height 1.6 m Height Method Stated Weight 78.216 kg Weight Measurement Method Standing Scale BMI 30.5 BP 118/78 Blood Pressure Source Automatic Cuff Blood Pressure Location Right Upper Arm Position Sitting Respiration 17 Pulse 82 Pulse Source Monitor Temp 97.5 F Temp Source Temporal Artery Scan Pulse Oximetry (%) 99 Oxygen Delivery Method Room Air Allergies/Home Meds Allergies & Medications Allergies No Known Allergies Allergy (Verified 10/16/24 11:31) Medication Reconciliation mv-mn no.97-folic 180 mcg-dha 25 mg-herb no.293 25 mg chewable tablet (Alive Daily Support ) tab PO 09/11/24 [History Confirmed 10/16/24] Intake Visit Data Collection New Patient or Established: Established Patient (seen at [facility] within 3 years) Reason for Visit:: STAPLE REMOVAL Seen by Clinical Staff ONLY (RN/MA): No Gis Application Developer Required: Yes Gis Application Developer's name/title: PAVEL MAYBERRY Do You Feel Safe at Home: Yes Authorities Contacted: N/A PCP or OBGYN visit in last 3 months: Yes Date of Last PCP or OBGYN visit: 10/03/24 Hx Now: No Are you currently on any form of Control: No Pain Present Currently: No Pain Scale Used: Evans-Au/Numerical Pain scale:: 0 Smoking Status Smoking Status: Never smoker [employer]: Past Medical History Past Medical History: No Hx Neurological Disorders, No Hx Cardiac Disorders, No Hx Cancer, No Hx Blood Disorders, No Hx Gastrointestinal Disorders, No Hx Renal Disease, No Hx Diabetes Mellitus Type 1 and No Hx Diabetes Mellitus Type 2 Questionnaires Covid-19 Vaccine Questionnaire Has patient been vacinated for Covid-19 Have you been vacinated for Covid-19: No Social History Living Situation History Marital Status: Lives With: Spouse Housing: House Tobacco History Smoking Status: Never smoker Second Hand Smoke Exposure: No Alcohol History Alcohol Intake: Never Domestic Abuse History Do You Feel Safe at Home: Yes EPDS - PP Depression Screening [place] Pospartum Depression Screen I have been able to laugh and see the funny side of things: (0) As much as I always could I have looked forward with enjoyment to things: (0) As much as I ever did I have blamed myself unnecessarily when things went wrong: (0) No, never I have been anxious or worried for no good reason: (0) No, not at all I have felt scared or panicky for no very good reason: (0) No, not at all Things have been getting on top of me: (0) No, I have been coping as well as ever I have been so unhappy that I have had difficulty sleeping: (0) No, not at all I have felt sad or miserable: (0) No, not at all I have been so unhappy that I have been crying: (0) No, never The thought of harming myself has occurred to me: (0) Never EPDS completed yes HPI Interval History: Patient is presenting for post operative visit after No acute complaints, pain is well-controlled Exam General General Appearance: alert, in no apparent distress and healthy appearing Head Head exam: atraumatic Neck Neck exam: Present normal inspection and trachea midline Chest Chest inspection: Present normal inspection and symmetric chest wall rise Abdominal Abdominal exam: Present other ( scar intact, dressing removed. Clean dry and intact) External exam: Present normal external exam; Absent tenderness Neuro Neurological exam: Present oriented X3 Psych Psychiatric exam: Present normal affect and normal mood Assessment & Plan Diagnosis / Problem List (1) Encounter for routine follow-up: Status: Acute Plan Continue routine care Follow-up in 4 weeks for visit and contraceptive counseling
== END 2024-10-16 11:42 | disposition home or self-care (01) ==
LOC: HODSOBC 11:04
PROVIDERS: Supervising Provider Obstetrics & Gynecology; Visit Provider Obstetrics & Gynecology
DX: Z39.2 Encounter for routine postpartum follow-up (principal)
CPT/HCPCS: 59425; 99213; G0463